=== PATIENT | male | born 1940 | race Caucasian/White ===

== ENCOUNTER 2021-10-21 13:31 | Emergency (ER) | payer MEDICARE, OTHER, SELFPAY ==
[2021-10-21] VITALS (9 sets, daily range): BP systolic 98–112; BP diastolic 48–61; PULSE 66–95; RESP 18; TEMP 36.6–36.8; O2SAT 92–98; BMI 22.8
--- NOTE | 2021-10-21 13:34 | XRR_ITS ---
PROCEDURE INFORMATION: Exam: XR Pelvis Exam date and time: 10/21/2021 2:23 PM Age: 81 years old Clinical indication: Injury or trauma; Fall; Blunt trauma (contusions or hematomas); Bilateral; Hip and pelvic region TECHNIQUE: Imaging protocol: XR pelvis. Views: 1 or 2 view. COMPARISON: CT angio chest abdomen pelvis 10/21/2021 1:56 PM FINDINGS: Bones/joints: There is a comminuted fracture in the right acetabulum. The bones are otherwise unremarkable. Soft tissues: Urinary bladder is partially filled with contrast. XR/XR pelvis 1-2V* [id number] IMPRESSION: Comminuted fracture right acetabulum. Otherwise negative examination
--- NOTE | 2021-10-21 13:34 | XRR_ITS ---
PROCEDURE INFORMATION: Exam: XR Chest Exam date and time: 10/21/2021 2:23 PM Age: 81 years old Clinical indication: Injury or trauma; Fall; Blunt trauma (contusions or hematomas) TECHNIQUE: Imaging protocol: XR of the chest. Views: 1 view. COMPARISON: CT angio chest abdomen pelvis 10/21/2021 1:56 PM FINDINGS: Lungs: Unremarkable. No consolidation. Pleural spaces: Unremarkable. No pleural effusion. No pneumothorax. Heart/Mediastinum: Unremarkable. No cardiomegaly. Bones/joints: Multiple chronic right rib fractures XR/XR chest 1V portable [id number] IMPRESSION: 1. No acute findings. 2. Multiple chronic right rib fractures
--- NOTE | 2021-10-21 13:34 | CT_ITS ---
WS: [id number] CTA CHEST, ABDOMEN AND PELVIS. HISTORY: Fell off roof. Right-sided pain. TECHNIQUE: CT angiogram is performed through the chest, abdomen and pelvis. Sagittal and coronal refo rmats have been submitted. MIP imaging also reviewed. All CT scans at [facility] use at least one of these dose optimization techniques: automated exposure control; mA and/or kV adjustment per p atient size (includes targeted exams where dose is matched to clinical indication); or iterative ziyad nstruction. Contrast: Omnipaque 350; 95 cc IV. DLP: 2128.19 mGy.cm COMPARISON: None. Chest CTA: No pneumothorax identified. Mild dependent changes at the lung bases. No mass or nodule. N ormal-sized thoracic aorta. There are a few scattered calcified plaques. No mediastinal hematoma. No aortic injury is identified at the isthmus. There is a small amount of intimal thickening and calcifi cation within the proximal descending thoracic aorta. Normal size pulmonary artery. No filling defect s. Moderate coronary artery atherosclerosis. Clavicles are intact. There are multiple right-sided rib fractures. Comminuted rib fractures beginnin g in the posterior lateral RIGHT third rib. There are comminuted fractures also within the fourth, fi fth and sixth ribs on the RIGHT. Nondisplaced seventh and eighth rib fractures. No transverse process fractures. No vertebral body fracture. Intact. Abdomen and pelvis CTA: Calcification continues through the abdominal aorta. No para-aortic hematoma. No rupture. Continued atherosclerotic plaque throughout the aorta. Proximal mesenteric arteries are normally enhancing. Atherosclerotic plaque continues into the common external iliac arteries. On this early arterial phase scan no liver or splenic laceration are identified. Early phase of enhan cement is limiting evaluation for subtle abnormalities. Gallbladder is normally distended. No pancrea tic or adrenal abnormality. Mildly atrophic kidneys. Simple cyst upper pole LEFT kidney. Smaller simp le cyst upper pole RIGHT kidney. No ascites or hematoma. No mesenteric hematoma. No GI tract obstruct ion. Moderate fecal retention throughout the colon. Urinary bladder is distended but displaced towards the LEFT of midline due to hematoma extending toribio g the RIGHT pelvis. Hematoma is likely the result of the pelvic fracture on the RIGHT. Ill-defined an d poorly organized hematoma along the RIGHT pelvis displacing the urinary bladder. Hematoma extends i nto the pelvis. Enlargement and hematoma present involving the RIGHT obturator. No active extravasati on from the arteries appreciated. Acute minimally displaced fracture involving the RIGHT sacrum with slight widening of the SI joint as compared to the LEFT. Additional comminuted fracture extends through the RIGHT ilium begins several centimeters above the acetabulum. Comminuted fracture extends through the roof of the acetabulum. Fra cture extends transversely through the roof of the acetabulum. Fracture continues along the medial wa ll of the acetabulum to the superior pubic rami. Bilateral superior and inferior pubic rami fractures . There is an additional RIGHT parasymphyseal pubic fracture. Slight widening of the pubic symphysis. No hip fracture identified. No transverse process fractures in the lumbar spine. L4 anterolisthesis by [address]/CT angio chest abdomen pelvis IMPRESSION: 1. No pneumothorax. 2. No acute thoracic or abdominal aortic injury. 3. Numerous contiguous right-sided rib fractures beginning from the third rib through the eighth rib. Several of these rib fractures are markedly comminuted. 4. No pulmonary contusion or laceration. 5. Numerous pelvic fractures including: Nondisplaced comminuted RIGHT ilium fr acture with extension to the acetabular roof. Fracture extends along the superi or acetabular roof into the medial column, RIGHT sacral fracture, bilateral sup erior and inferior pubic rami fractures, and RIGHT parasymphyseal fracture. 6. Moderate-sized ill-defined hematoma extending along the RIGHT urinary bladd er into the pelvis displacing the urinary bladder. Hematoma extends into the RI GHT obturator slab off mill tender muscle. The wall of the bladder is obliterated by the h ematoma. Cannot exclude bladder wall injury. There is no ascites. 7. No mesenteric hematoma. 8. No hip fracture and no thoracic or lumbar spine fracture appreciated.
--- NOTE | 2021-10-21 13:34 | CT_ITS ---
WS: [id number] CT HEAD NONCONTRAST HISTORY: fall TECHNIQUE: Contiguous axial imaging performed through the brain in 2.5 mm imaging. Bone and soft tiss ue windows. Sagittal and coronal reformats reviewed. All CT scans at [facility] use at least one of these dose optimization techniques: automated exposure control; mA and/or kV adjustment per pa tient size (includes targeted exams where dose is matched to clinical indication); or iterative recon struction. DLP: 851.99 mGy.cm COMPARISON: None available. Single 2-3 mm focus of increased density in the subcortical white matter of the posterior LEFT pariet al lobe. No additional areas of increased density suspicious for acute blood products. No midline yumiko ft or mass effect. Mild atrophy and very mild chronic microvascular ischemic disease otherwise. Bilateral basal ganglia calcifications. Ventricles: Normal size ventricles. No intraventricular blood. No blood at the interpedicular cister n. Paranasal sinuses: Mucoperiosteal thickening and increased opacification of the RIGHT maxillary sinus . There is a small amount of air that appears external to the sinus cavity. Highly suspicious for fra cture of the RIGHT maxillary sinus. Mastoid air cells: Well pneumatized. Calvarium and scalp: No skull fracture appreciated. There is a small amount of increased density in t he RIGHT external auditory canal which is probably cerumen. CT/CT head wo con* [id number] IMPRESSION: 1. Very tiny, 2 to 3 mm single focus of increased density in the subcortical w giorgi matter LEFT parietal lobe. Indeterminate for acute blood. This may be a si ngle focus of acute hemorrhage or small calcification. 2. No edema or midline shift. 3. Increased opacification throughout the RIGHT maxillary sinus with a small a mount of air which is external to the sinus. Findings are concerning for RIGHT facial bone fracture involving the RIGHT maxillary sinus which can be better ev aluated on the facial bone CT.
--- NOTE | 2021-10-21 13:38 | CT_ITS ---
WS: [id number] CT CERVICAL SPINE HISTORY: trauma TECHNIQUE: Contiguous 2.5 mm axial imaging performed through the entire cervical spine. Sagittal and coronal reformats also performed. All CT scans at [facility] use at least one of these dose o ptimization techniques: automated exposure control; mA and/or kV adjustment per patient size (include s targeted exams where dose is matched to clinical indication); or iterative reconstruction. DLP: 492.28 mGy.cm COMPARISON: None available. Straightening of the normal cervical lordosis. C3 anterolisthesis by 2.7 mm. Otherwise severe degener ative disc space narrowing and desiccation with osteophytes throughout the cervical spine. Craniocerv ical junction appears normally aligned. Lateral masses of C1 and C2 are aligned. Odontoid is intact. No acute fractures are identified. Moderate calcification in the distal vertebral arteries C2-C3: Moderate LEFT foraminal stenosis with marked facet arthritis on the LEFT. C3-C4: Bilateral facet joint arthritis with mild foraminal narrowing. C4-C5: Mild osteophytic ridging with a more focal osteophyte extending into the LEFT subarticular rec ess. C5-C6: Osteophytic ridging. Moderate LEFT foraminal stenosis. C6-C7: Diffuse osteophytic ridging with mild foraminal narrowing. C7-T1: Normal. No pneumothorax at the lung apices. CT/CT cervical spin wo con* [id number] IMPRESSION: No cervical spine fractures identified. C3 anterolisthesis by 2.76 mm May be degenerative. 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
--- NOTE | 2021-10-21 13:47 | W.ED.GENADLT ---
HPI - General Adult General: Chief complaint: Trauma Stated complaint: FALL 15 FT Time Seen by Provider: 10/21/21 13:34 History of Present Illness: Patient is an 81-year-old male on Eliquis for atrial fibrillation presented to emergency room after fall from 15 feet. Patient was on the roof when he fell from the roof complaining of right-sided chest and hip pain. Patient denies any LOC. This fall was witnessed by family. Family ports the patient also complained of similar pain. Family did not let patient walk after the incident. EMS was called patient was brought to the emergency room for evaluation. Patient denies any chest pain, shortness of breath, or palpitation prior to the episode of fall. Onset: 30 minutes ago Duration:30 minutes Location:home Severity:severe Associated symptoms: Reports chest pain; Deny dyspnea, nausea, rash, palpitations or vomiting Review of Systems Const: Denies: fever(s) or chills Eyes: Denies: change in vision ENMT: Denies: mouth pain Card: Reports: chest pain; Denies: palpitations Resp: Denies: dyspnea or non-productive cough GI: Denies: abdominal pain, nausea, vomiting or diarrhea : Denies: dysuria Musc: Reports: extremity pain (+R hip pain) Skin/Breast: Denies: rash or new lesions Neuro: Denies: weakness in extremities Psych: Reports: other (Normal mood) Hussain/Lymph: Denies: easy bruising [facility] ED PFSH: Medical History (Updated 10/21/21 @ 13:49 by Elpidio Nicholson MD) Atrial fibrillation Social History (Updated 10/21/21 @ 13:49 by Elpidio Nicholson MD) Smoking and tobacco status: never smoked Alcohol intake: never Physical Exam Const: COMMON NORMALS: alert HENMT: COMMON NORMALS: atraumatic HEAD & SCALP: atraumatic MOUTH: moist mucous membranes not abnormal Eye: COMMON NORMALS: EOMs intact bilaterally and conjunctivae normal CONJUNCTIVA: Yes conjunctivae normal Neck/C-Spine: COMMON NORMALS: full ROM and supple Resp: COMMON NORMALS: normal respiratory effort and clear to auscultation bilaterally AUSCULTATION: clear to auscultation bilaterally Cardio: COMMON NORMALS: regular rate RATE: regular rate GI: COMMON NORMALS: Soft to palpation and non-tender PALPATION: Yes Soft to palpation Extremity: OTHER: +R hip tenderness to palpation, decreased ROM of the R hip due to pain +Neurovascular exam intact in the RLE Neuro: SENSORIUM/ORIENTATION: Yes alert MOTOR EXAM: No Abnormal motor strength present and Other motor observations present (no focal motor deficits) Psych: COMMON NORMALS: speech normal SPEECH: Yes normal speech MOOD & AFFECT: Yes euthymic mood Course Vital Signs: Vital signs: Vital Signs Temperature 98 F 10/21/21 17:08 Pulse Rate 78 10/21/21 17:08 Respiratory Rate 18 10/21/21 17:08 Blood Pressure 105/61 10/21/21 17:08 Pulse Oximetry 97 10/21/21 17:08 MDM - General Adult Medical Decision Making 81-year-old male history of atrial fibrillation on Eliquis presenting to the emergency after fall from 15 feet. Patient claims right chest and hip pain. Right hip tenderness palpation decreased range of motion of right hip. Neurovascular exam intact in the right lower extremity. Trauma scan showed the patient has numerous rib fractures without hemopneumothorax, right-sided bladder wall hematoma, right-sided comminuted acetabular fracture. She received morphine for pain and is currently pain controlled. Blood pressure 97/49. Serial fast is negative for any signs of pneumothorax, hemoperitoneum, or any new or concerning isuses. Patient was noted to have a bladder wall hematoma. Given the fact the patient was on Eliquis, I have discussed case Dr. Art to decide whether patient needs reversal. Given the fact the patient is normotensive, without any focal abdominal pain, decision was made to defer reversal of DOAC. Case was discussed with Dr. Art from [facility] who agreed with the transfer to [facility] for trauma management. Disposition: Transfer to outside hospital Lab Data : 10/21/21 13:38 10/21/21 14:08 Radiology Impressions Chest X-Ray 10/21/21 13:34 IMPRESSION: 1. No acute findings. 2. Multiple chronic right rib fractures Chest/Abdomen/Pelvis CTA 10/21/21 13:34 IMPRESSION: 1. No pneumothorax. 2. No acute thoracic or abdominal aortic injury. 3. Numerous contiguous right-sided rib fractures beginning from the third rib through the eighth rib. Several of these rib fractures are markedly comminuted. 4. No pulmonary contusion or laceration. 5. Numerous pelvic fractures including: Nondisplaced comminuted RIGHT ilium fracture with extension to the acetabular roof. Fracture extends along the superior acetabular roof into the medial column, RIGHT sacral fracture, bilateral superior and inferior pubic rami fractures, and RIGHT parasymphyseal fracture. 6. Moderate-sized ill-defined hematoma extending along the RIGHT urinary bladder into the pelvis displacing the urinary bladder. Hematoma extends into the RIGHT obturator pathology manager muscle. The wall of the bladder is obliterated by the hematoma. Cannot exclude bladder wall injury. There is no ascites. 7. No mesenteric hematoma. 8. No hip fracture and no thoracic or lumbar spine fracture appreciated. Head CT 10/21/21 13:34 IMPRESSION: 1. Very tiny, 2 to 3 mm single focus of increased density in the subcortical white matter LEFT parietal lobe. Indeterminate for acute blood. This may be a single focus of acute hemorrhage or small calcification. 2. No edema or midline shift. 3. Increased opacification throughout the RIGHT maxillary sinus with a small amount of air which is external to the sinus. Findings are concerning for RIGHT facial bone fracture involving the RIGHT maxillary sinus which can be better evaluated on the facial bone CT. Pelvis X-Ray 10/21/21 13:34 IMPRESSION: Comminuted fracture right acetabulum. Otherwise negative examination Cervical Spine CT 10/21/21 13:38 IMPRESSION: No cervical spine fractures identified. C3 anterolisthesis by 2.76 mm May be degenerative. 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 Face CT 10/21/21 14:22 IMPRESSION: 1. Comminuted fractures involving the moura of the RIGHT maxillary sinus with acute hemorrhage into the antrum. 2. Floor of the RIGHT orbit is fractured with no entrapment of extraocular muscles. Laboratory Results WBC 14.8 10^3/uL (4.0-10.0) H 10/21/21 13:38 RBC 3.33 10^6/uL (4.1-5.3) L 10/21/21 13:38 Hgb 10.7 g/dL (11.7-16.6) L 10/21/21 13:38 Hct 33.1 % (42.0-52.0) L 10/21/21 13:38 MCV 99.4 fl (80-94) H 10/21/21 13:38 MCH 32.1 pg (28.0-34.0) 10/21/21 13:38 MCHC 32.3 g/dL (30.0-36.0) 10/21/21 13:38 RDW 15.5 % (12.1-15.1) H 10/21/21 13:38 Plt Count 223 10^3/cmm (130-400) 10/21/21 13:38 MPV 10.2 fL (7.4-10.4) 10/21/21 13:38 Neut % (Auto) 74.2 % 10/21/21 13:38 Lymph % (Auto) 17.1 % 10/21/21 13:38 [place] % (Auto) 5.8 % 10/21/21 13:38 Eos % (Auto) 0.8 % 10/21/21 13:38 Baso % (Auto) 0.4 % 10/21/21 13:38 Neut # (Auto) 10.96 10^3/uL (1.8-7.7) H 10/21/21 13:38 Lymph # (Auto) 2.5 10^3/uL (0.8-4.8) 10/21/21 13:38 [place] # (Auto) 0.9 10^3/uL (0.2-0.9) 10/21/21 13:38 Eos # (Auto) 0.1 10^3/uL (0.0-0.8) 10/21/21 13:38 Baso # (Auto) 0.1 10^3/uL (0.0-0.1) 10/21/21 13:38 Nucleated RBC % (auto) 0 % 10/21/21 13:38 Nucleated RBCs # 0.0 /100WBC 10/21/21 13:38 PT 16.20 SECONDS (12.1-14.9) H 10/21/21 14:08 INR 1.26 (0.8-1.2) H 10/21/21 14:08 APTT 34.7 SECONDS (23.9-36.7) 10/21/21 14:08 Sodium 135 mmol/L (136-145) L 10/21/21 14:08 Potassium 4.2 mmol/L (3.5-5.1) 10/21/21 14:08 Chloride 100 mmol/L (98-107) 10/21/21 14:08 Carbon Dioxide 24 mmol/L (22-29) 10/21/21 14:08 Anion Gap 15.2 (5-19) 10/21/21 14:08 BUN 31 mg/dL (8-23) H 10/21/21 14:08 Creatinine 2.3 mg/dL (0.7-1.2) H 10/21/21 14:08 GFR Calculation Not Reportable 10/21/21 14:08 Glucose 143 mg/dL (65-115) H 10/21/21 14:08 Calculated Osmolality 289 mOsm/kg (285-295) 10/21/21 14:08 Calcium 8.1 mg/dL (8.5-10.5) L 10/21/21 14:08 Imaging Data Other Imaging: Radiologist's impression: [facility] [place] [address] CT Scan Report Signed Patient: Rolf Christie Unit #: [id number] : 1940 Age/Sex: 81 / M ADM Date: 10/21/21 Loc: ER Room/Bed: Attending Dr: Ordering Provider/Ordering MD: Elpidio Nicholson MD Date of Service: 10/21/21 Procedure(s): CT facial bones wo con* [id number] Accession Number(s): [id number] Report Number: [id number] WS: [id number] CT FACIAL BONES HISTORY: facial fx? TECHNIQUE: Images obtained from the supraorbital location through the mandible. Soft tissue and bone windows are reviewed. Coronal and sagittal reformats have also been submitted. DLP: 794.[address] [facility] use at least one of these dose optimization techniques: automated exposure control; mA and/or kV adjustment per patient size (includes targeted exams where dose is matched to clinical indication); or iterative reconstruction. COMPARISON: None available. Near complete heterogeneous opacification with blood throughout the RIGHT maxillary sinus. Comminuted fractures with minimal depression involving the anterior wall. Nondisplaced fracture also involving the medial wall and the posterior wall. The floor of the orbit is fractured but there is no herniation of the extraocular muscles or entrapment. Pterygoid plates are normal bilaterally. No nasal bone fracture or zygomatic fracture. Visualized orbits and globes are negative. CT/CT facial bones wo con* [id number] IMPRESSION: ? 1.? Comminuted fractures involving the moura of the RIGHT maxillary sinus with acute hemorrhage into the antrum. 2.? Floor of the RIGHT orbit is fractured with no entrapment of extraocular muscles. ? ? ? Dictated By: Suzy Live DO Signed By: Suzy Live DO Signed Date/Time: 10/21/21 1500 DD/ 1454 [facility] [address] [place] [address] CT Scan Report Signed Patient: Rolf Christie Unit #: [id number] : 1940 Age/Sex: 81 / M ADM Date: 10/21/21 Loc: ER Room/Bed: Attending Dr: Ordering Provider/Ordering MD: Elpidio Nicholson MD Date of Service: 10/21/21 Procedure(s): CT cervical spin wo con* [id number] Accession Number(s): [id number] Report Number: [id number] WS: [id number] CT CERVICAL SPINE HISTORY: trauma TECHNIQUE: Contiguous 2.5 mm axial imaging performed through the entire cervical spine. Sagittal and coronal reformats also performed.? All CT scans at [facility] use at least one of these dose optimization techniques: automated exposure control; mA and/or kV adjustment per patient size (includes targeted exams where dose is matched to clinical indication); or iterative reconstruction. DLP: 492.28 mGy.cm COMPARISON: None available. Straightening of the normal cervical lordosis. C3 anterolisthesis by 2.7 mm. Otherwise severe degenerative disc space narrowing and desiccation with osteophytes throughout the cervical spine. Craniocervical junction appears normally aligned. Lateral masses of C1 and C2 are aligned. Odontoid is intact. No acute fractures are identified. Moderate calcification in the distal vertebral arteries C2-C3: Moderate LEFT foraminal stenosis with marked facet arthritis on the LEFT. C3-C4: Bilateral facet joint arthritis with mild foraminal narrowing. C4-C5: Mild osteophytic ridging with a more focal osteophyte extending into the LEFT subarticular recess. C5-C6: Osteophytic ridging. Moderate LEFT foraminal stenosis. C6-C7: Diffuse osteophytic ridging with mild foraminal narrowing. C7-T1: Normal. No pneumothorax at the lung apices. CT/CT cervical spin wo con* [id number] IMPRESSION: ? No cervical spine fractures identified. C3 anterolisthesis by 2.76 mm May be degenerative. 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 ? Dictated By: Suzy Live DO Signed By: Suzy Live DO Signed Date/Time: 10/21/21 1424 DD/ [address] [place] [address] XRay Report Signed Patient: Rolf Christie Unit #: [id number] : 1940 Age/Sex: 81 / M ADM Date: 10/21/21 Loc: ER Room/Bed: Attending Dr: Ordering Provider/Ordering MD: Elpidio Nicholson MD Date of Service: 10/21/21 Procedure(s): XR pelvis 1-2V* [id number] Accession Number(s): [id number] Report Number: [id number] PROCEDURE INFORMATION: Exam: XR Pelvis Exam date and time: 10/21/2021 2:23 PM Age: 81 years old Clinical indication: Injury or trauma; Fall; Blunt trauma (contusions or hematomas); Bilateral; Hip and pelvic region TECHNIQUE: Imaging protocol: XR pelvis. Views: 1 or 2 view. COMPARISON: CT angio chest abdomen pelvis 10/21/2021 1:56 PM FINDINGS: Bones/joints:? There is a comminuted fracture in the right acetabulum.? The bones are otherwise unremarkable. Soft tissues:? Urinary bladder is partially filled with contrast. XR/XR pelvis 1-2V* [id number] IMPRESSION: Comminuted fracture right acetabulum. Otherwise negative examination ? Dictated By: Rolf Smiley Signed By: Rolf Smiley Signed Date/Time: 10/21/21 1446 DD/ [address] [place] [address] CT Scan Report Signed Patient: Rolf Christie Unit #: [id number] : 1940 Age/Sex: 81 / M ADM Date: 10/21/21 Loc: ER Room/Bed: Attending Dr: Ordering Provider/Ordering MD: Elpidio Nicholson MD Date of Service: 10/21/21 Procedure(s): CT head wo con* [id number] Accession Number(s): [id number] Report Number: [id number] WS: [id number] CT HEAD NONCONTRAST HISTORY: fall TECHNIQUE: Contiguous axial imaging performed through the brain in 2.5 mm imaging. Bone and soft tissue windows. Sagittal and coronal reformats reviewed.? All CT scans at [facility] use at least one of these dose optimization techniques: automated exposure control; mA and/or kV adjustment per patient size (includes targeted exams where dose is matched to clinical indication); or iterative reconstruction. DLP: 851.99 mGy.cm COMPARISON: None available. Single 2-3 mm focus of increased density in the subcortical white matter of the posterior LEFT parietal lobe. No additional areas of increased density suspicious for acute blood products. No midline shift or mass effect. Mild atrophy and very mild chronic microvascular ischemic disease otherwise. Bilateral basal ganglia calcifications. Ventricles:? Normal size ventricles. No intraventricular blood. No blood at the interpedicular cistern. Paranasal sinuses: Mucoperiosteal thickening and increased opacification of the RIGHT maxillary sinus. There is a small amount of air that appears external to the sinus cavity. Highly suspicious for fracture of the RIGHT maxillary sinus. Mastoid air cells: Well pneumatized. Calvarium and scalp: No skull fracture appreciated. There is a small amount of increased density in the RIGHT external auditory canal which is probably cerumen. CT/CT head wo con* [id number] IMPRESSION: ? 1.? Very tiny, 2 to 3 mm single focus of increased density in the subcortical white matter LEFT parietal lobe. Indeterminate for acute blood. This may be a single focus of acute hemorrhage or small calcification. 2.? No edema or midline shift. 3.? Increased opacification throughout the RIGHT maxillary sinus with a small amount of air which is external to the sinus. Findings are concerning for RIGHT facial bone fracture involving the RIGHT maxillary sinus which can be better evaluated on the facial bone CT. ? Dictated By: Suzy Live DO Signed By: Suzy Live DO Signed Date/Time: 10/21/21 1417 DD/ 1408 [facility] [address] [place] [address] CT Scan Report Signed Patient: Rolf Christie Unit #: [id number] : 1940 Age/Sex: 81 / M ADM Date: 10/21/21 Loc: ER Room/Bed: Attending Dr: Ordering Provider/Ordering MD: Elpidio Nicholson MD Date of Service: 10/21/21 Procedure(s): CT angio chest abdomen pelvis Accession Number(s): [id number] Report Number: [id number] WS: [email or web address] CTA CHEST, ABDOMEN AND PELVIS. HISTORY: Fell off roof. Right-sided pain. TECHNIQUE: CT angiogram is performed through the chest, abdomen and pelvis. Sagittal and coronal reformats have been submitted.? MIP imaging also reviewed. All CT scans at [facility] use at least one of these dose optimization techniques: automated exposure control; mA and/or kV adjustment per patient size (includes targeted exams where dose is matched to clinical indication); or iterative reconstruction. Contrast: Omnipaque 350; 95 cc IV. DLP: 2128.19 mGy.cm COMPARISON: None. Chest CTA: No pneumothorax identified. Mild dependent changes at the lung bases. No mass or nodule. Normal-sized thoracic aorta. There are a few scattered calcified plaques. No mediastinal hematoma. No aortic injury is identified at the isthmus. There is a small amount of intimal thickening and calcification within the proximal descending thoracic aorta. Normal size pulmonary artery. No filling defects. Moderate coronary artery atherosclerosis. Clavicles are intact. There are multiple right-sided rib fractures. Comminuted rib fractures beginning in the posterior lateral RIGHT third rib. There are comminuted fractures also within the fourth, fifth and sixth ribs on the RIGHT. Nondisplaced seventh and eighth rib fractures. No transverse process fractures. No vertebral body fracture. Intact. Abdomen and pelvis CTA: Calcification continues through the abdominal aorta. No para-aortic hematoma. No rupture. Continued atherosclerotic plaque throughout the aorta. Proximal mesenteric arteries are normally enhancing. Atherosclerotic plaque continues into the common external iliac arteries. On this early arterial phase scan no liver or splenic laceration are identified. Early phase of enhancement is limiting evaluation for subtle abnormalities. Gallbladder is normally distended. No pancreatic or adrenal abnormality. Mildly atrophic kidneys. Simple cyst upper pole LEFT kidney. Smaller simple cyst upper pole RIGHT kidney. No ascites or hematoma. No mesenteric hematoma. No GI tract obstruction. Moderate fecal retention throughout the colon. Urinary bladder is distended but displaced towards the LEFT of midline due to hematoma extending along the RIGHT pelvis. Hematoma is likely the result of the pelvic fracture on the RIGHT. Ill-defined and poorly organized hematoma along the RIGHT pelvis displacing the urinary bladder. Hematoma extends into the pelvis. Enlargement and hematoma present involving the RIGHT obturator. No active extravasation from the arteries appreciated. Acute minimally displaced fracture involving the RIGHT sacrum with slight widening of the SI joint as compared to the LEFT. Additional comminuted fracture extends through the RIGHT ilium begins several centimeters above the acetabulum. Comminuted fracture extends through the roof of the acetabulum. Fracture extends transversely through the roof of the acetabulum. Fracture continues along the medial wall of the acetabulum to the superior pubic rami. Bilateral superior and inferior pubic rami fractures. There is an additional RIGHT parasymphyseal pubic fracture. Slight widening of the pubic symphysis. No hip fracture identified. No transverse process fractures in the lumbar spine. L4 anterolisthesis by [address]/CT angio chest abdomen pelvis IMPRESSION: ? 1.? No pneumothorax. 2.? No acute thoracic or abdominal aortic injury. 3.? Numerous contiguous right-sided rib fractures beginning from the third rib through the eighth rib. Several of these rib fractures are markedly comminuted. 4.? No pulmonary contusion or laceration. 5.? Numerous pelvic fractures including: Nondisplaced comminuted RIGHT ilium fracture with extension to the acetabular roof. Fracture extends along the superior acetabular roof into the medial column, RIGHT sacral fracture, bilateral superior and inferior pubic rami fractures, and RIGHT parasymphyseal fracture. 6.? Moderate-sized ill-defined hematoma extending along the RIGHT urinary bladder into the pelvis displacing the urinary bladder. Hematoma extends into the RIGHT obturator pathology manager muscle. The wall of the bladder is obliterated by the hematoma. Cannot exclude bladder wall injury. There is no ascites. 7.? No mesenteric hematoma. 8.? No hip fracture and no thoracic or lumbar spine fracture appreciated. ? ? ? Dictated By: Suzy Live DO Signed By: Suzy Live DO Signed Date/Time: 10/21/21 1454 DD/ [address] [address] XRay Report Signed Patient: Rolf Christie Unit #: [id number] : 1940 Age/Sex: 81 / M ADM Date: 10/21/21 Loc: ER Room/Bed: Attending Dr: Ordering Provider/Ordering MD: Elpidio Nicholson MD Date of Service: 10/21/21 Procedure(s): XR chest 1V portable [id number] Accession Number(s): [id number] Report Number: [id number] PROCEDURE INFORMATION: Exam: XR Chest Exam date and time: 10/21/2021 2:23 PM Age: 81 years old Clinical indication: Injury or trauma; Fall; Blunt trauma (contusions or hematomas) TECHNIQUE: Imaging protocol: XR of the chest. Views: 1 view. COMPARISON: CT angio chest abdomen pelvis 10/21/2021 1:56 PM FINDINGS: Lungs: Unremarkable. No consolidation. Pleural spaces: Unremarkable. No pleural effusion. No pneumothorax. Heart/Mediastinum: Unremarkable. No cardiomegaly. Bones/joints: Multiple chronic right rib fractures XR/XR chest 1V portable [id number] IMPRESSION: 1. No acute findings. 2. Multiple chronic right rib fractures ? Dictated By: Rolf Smiley Signed By: Rolf Smiley Signed Date/Time: 10/21/21 1441 DD/ 1423 Discharge Plan Discharge Patient Disposition: Admitted As Inpatient Clinical Impression: Fall Condition: Stable Coding Level of Care Code ED Stitcher Hand for Chg Fwd Exam Comprehensive
[2021-10-21 13:48] LABS: Basophils # 0.1 10^3/uL (0.0-0.1); Basophils % 0.4 %; Eosinophils # 0.1 10^3/uL (0.0-0.8); Eosinophils % 0.8 %; Hematocrit 33.1 % (42.0-52.0); Hemoglobin 10.7 g/dL (11.7-16.6); Lymphocytes # 2.5 10^3/uL (0.8-4.8); Lymphocytes % 17.1 %; Mean Corpuscular HGB Conc 32.3 g/dL (30.0-36.0); Mean Corpuscular Hemoglobin 32.1 pg (28.0-34.0); Mean Corpuscular Volume 99.4 fl (80-94); Mean Platelet Volume 10.2 fL (7.4-10.4); Monocytes # 0.9 10^3/uL (0.2-0.9); Monocytes % 5.8 %; Neutrophils # 10.96 10^3/uL (1.8-7.7); Neutrophils % 74.2 %; Nucleated Red Blood Cells % 0 %; Platelet Count 223 10^3/cmm (130-400); Red Blood Count 3.33 10^6/uL (4.1-5.3); Red Cell Distribution Width 15.5 % (12.1-15.1); White Blood Count 14.8 10^3/uL (4.0-10.0)
[2021-10-21] MEDS: morphine 4 mg/mL SDV 1 mL 2 MG IVP (14:05)
--- NOTE | 2021-10-21 14:22 | CT_ITS ---
WS: [id number] CT FACIAL BONES HISTORY: facial fx? TECHNIQUE: Images obtained from the supraorbital location through the mandible. Soft tissue and bone windows are reviewed. Coronal and sagittal reformats have also been submitted. DLP: 794.[address] scans at [facility] use at least one of these dose optimization techniques: automated e xposure control; mA and/or kV adjustment per patient size (includes targeted exams where dose is matc hed to clinical indication); or iterative reconstruction. COMPARISON: None available. Near complete heterogeneous opacification with blood throughout the RIGHT maxillary sinus. Comminuted fractures with minimal depression involving the anterior wall. Nondisplaced fracture also involving the medial wall and the posterior wall. The floor of the orbit is fractured but there is no herniatio n of the extraocular muscles or entrapment. Pterygoid plates are normal bilaterally. No nasal bone fracture or zygomatic fracture. Visualized orb its and globes are negative. CT/CT facial bones wo con* [id number] IMPRESSION: 1. Comminuted fractures involving the moura of the RIGHT maxillary sinus with acute hemorrhage into the antrum. 2. Floor of the RIGHT orbit is fractured with no entrapment of extraocular mus cles.
[2021-10-21 14:34] LABS: INR 1.26 (0.8-1.2); Partial Thromboplastin Time 34.7 SECONDS (23.9-36.7)
[2021-10-21 14:39] LABS: Anion Gap 15.2 (5-19); Blood Urea Nitrogen 31 mg/dL (8-23); Calcium 8.1 mg/dL (8.5-10.5); Carbon Dioxide 24 mmol/L (22-29); Chloride 100 mmol/L (98-107); Glucose 143 mg/dL (65-115); Osmolality Calculated 289 mOsm/kg (285-295); Potassium 4.2 mmol/L (3.5-5.1); Sodium 135 mmol/L (136-145)
[2021-10-21] MEDS: iohexol 350 mg/mL 100 mL Btl IV (14:51)
--- NOTE | 2021-10-21 15:10 | ECG_ITS ---
[facility] Test Date: 2021-10-21 Pat Name: Rolf Christie Department: Room: Gender: Male Sign Maintenance: : 1940 Requested By: Elpidio Nicholson Order Number: [id number] Yadiel MD: Migdalia Elizondo M.D. Measurements Intervals [place] Rate: 91 P: SC: QRS: 9 QRSD: 137 T: 66 QT: 402 QTc: 497 Interpretive Statements ATRIAL FIBRILLATION WITH ABERRANT CONDUCTION OR VENTRICULAR PREMATURE COMPLEXES INTRAVENTRICULAR CONDUCTION DELAY [130+ ms QRS DURATION] SEPTAL MYOCARDIAL INFARCTION , PROBABLY OLD [40+ ms Q WAVE IN V1/V2] No previous ECG available for comparison Electronically Signed On 10-21-2021 22:59:44 CDT by Migdalia Elizondo M.D. [id number]
[2021-10-21] MEDS: sodium chloride 0.9% 1,000 ML 999 ML IV (15:23)
[2021-10-21] MEDS: morphine 4 mg/mL SDV 1 mL IVP (16:45)
== END 2021-10-21 17:10 | disposition admitted as inpatient to this hospital (09) ==
PROVIDERS: Emergency Provider Emergency Medicine
DX: S32.401A Unspecified fracture of right acetabulum, initial encounter for closed fracture (principal); S22.41XA Multiple fractures of ribs, right side, initial encounter for closed fracture; S02.40CA Maxillary fracture, right side, initial encounter for closed fracture; S02.31XA Fracture of orbital floor, right side, initial encounter for closed fracture; S37.22XA Contusion of bladder, initial encounter; W17.89XA Other fall from one level to another, initial encounter; Z79.01 Long term (current) use of anticoagulants
CPT/HCPCS: 70450; 70486; 71045; 71275; 72125; 72170; 74174; 80048; 85025; 85610; 85730; 93005; 96361; 96374; 96376; 99285; J2270; J7030; Q9967

== ENCOUNTER → 2021-11-18 11:11 | Outpatient (BNVA) | payer MEDICARE, OTHER, SELFPAY | PROVIDERS: Visit Provider Family Medicine | DX: D50.0 Iron deficiency anemia secondary to blood loss (chronic) (principal); I50.20 Unspecified systolic (congestive) heart failure; S22.49XA Multiple fractures of ribs, unspecified side, initial encounter for closed fracture; S32.9XXA Fracture of unspecified parts of lumbosacral spine and pelvis, initial encounter for closed fracture; I48.91 Unspecified atrial fibrillation; Z79.899 Other long term (current) drug therapy; Z76.89 Persons encountering health services in other specified circumstances | CPT/HCPCS: 80053; 84439; 84443; 85025 ==